=== PATIENT | male | born 1990 | race Asian ===

== ENCOUNTER 2017-12-29 01:38 | Emergency (ER) | payer OTHER ==
[~2017-12-29] VITALS: Ht 185.4 cm; Wt 104.5 kg
[~2017-12-29 01:38] MED LIST: PROTONIX 40MG T40 MG PO; ZITHROMAX 250M250 MG PO; ZITHROMAX Z PA250 MG PO; ZOFRAN ODT4 MG PO
[2017-12-29 01:43] VITALS: BP 128/62; TEMP 97.2
[2017-12-29 02:09] LABS: BASO % 0.3 % (0.0-2.0); GRAN % 62.9 % (42.2-75.2); HEMOGLOBIN 14.5 g/dl (13.5-18.0); LYMPH # 2.9 (1.2-3.4); LYMPH % 29.7 % (20.0-51.0); MEAN CELL VOLUME 86 fl (80.0-100.0); MEAN CORPUSCULAR HEMOGLOBIN 30 pg (27.0-31.0); MEAN CORPUSCULAR HGB CONC 35 g/dl (33.0-37.0); MEAN PLATELET VOLUME 9.6 fl (7.4-10.4); MONO # 0.7 (0.1-0.6); MONO % 6.9 % (1.7-9.3); PLATELET COUNT 292 K/mm3 (130-400); RED BLOOD COUNT 4.87 M/mm3 (4.20-5.60); REDCELL DISTRIBUTION WIDTH-CV 12.6 % (11.5-14.5)
[2017-12-29 02:21] LABS: ALBUMIN 3.8 gm/dL (3.5-5.0); BILIRUBIN,TOTAL 0.2 mg/dL (0.0-1.0); C-REACTIVE PROTEIN 0.9 mg/dL (0.0-0.9); CALCIUM 8.9 mg/dL (8.4-10.2); CREATININE, serum 0.89 mg/dL (0.66-1.25); POTASSIUM 4.1 mmol/L (3.4-5.0); TOTAL PROTEIN 7.4 gm/dL (6.4-8.2)
[2017-12-29 03:36] VITALS: PULSE 65
== END 2017-12-29 03:35 | disposition home or self-care (01) ==
LOC: COL.ER 01:38
PROVIDERS: Nurse Practitioner
DX: K85.90 Acute pancreatitis without necrosis or infection, unspecified (principal); F17.210 Nicotine dependence, cigarettes, uncomplicated
CPT/HCPCS: J2405; J7030

== ENCOUNTER 2018-09-11 05:01 | Emergency (ER) | payer OTHER ==
[~2018-09-11] VITALS: Ht 183 cm; Wt 110.5 kg
[2018-09-11 05:13] VITALS: TEMP 97.9
[2018-09-11 07:19] VITALS: BP 128/60; PULSE 80
== END 2018-09-11 07:20 | disposition home or self-care (01) ==
LOC: COL.ER 05:01
DX: R51 Headache (principal); R11.10 Vomiting, unspecified; F17.290 Nicotine dependence, other tobacco product, uncomplicated

== ENCOUNTER 2018-10-07 04:20 | Emergency (ER) | payer OTHER ==
[~2018-10-07] VITALS: Ht 180 cm; Wt 110.5 kg
[2018-10-07 04:32] VITALS: TEMP 97.9
[2018-10-07 06:08] LABS: BASO % 0.3 % (0.0-2.0); GRAN # 8.3 (1.4-6.5); GRAN % 73.9 % (42.2-75.2); HEMATOCRIT 43.7 % (42.0-52.0); HEMOGLOBIN 14.9 g/dl (13.5-18.0); LYMPH # 2.2 (1.2-3.4); LYMPH % 19.9 % (20.0-51.0); MEAN CELL VOLUME 87 fl (80.0-100.0); MEAN CORPUSCULAR HEMOGLOBIN 30 pg (27.0-31.0); MEAN CORPUSCULAR HGB CONC 34 g/dl (33.0-37.0); MEAN PLATELET VOLUME 9.5 fl (7.4-10.4); MONO # 0.6 (0.1-0.6); MONO % 5.5 % (1.7-9.3); PLATELET COUNT 319 K/mm3 (130-400); RED BLOOD COUNT 5.05 M/mm3 (4.20-5.60); REDCELL DISTRIBUTION WIDTH-CV 12.4 % (11.5-14.5)
[2018-10-07 06:18] LABS: ALBUMIN 4.2 gm/dL (3.5-5.0); BILIRUBIN,TOTAL 0.4 mg/dL (0.0-1.0); CALCIUM 9.6 mg/dL (8.4-10.2); CREATININE, serum 0.78 mg/dL (0.66-1.25); POTASSIUM 4.1 mmol/L (3.4-5.0); TOTAL PROTEIN 7.8 gm/dL (6.4-8.2)
[2018-10-07] MEDS ORDERED: ZOFRAN 4MG T4 MG/TAB PO (07:02)
[2018-10-07 07:10] VITALS: BP 127/87; PULSE 81
== END 2018-10-07 07:07 | disposition home or self-care (01) ==
LOC: COL.ER 04:20
PROVIDERS: Emergency Medicine
DX: R10.13 Epigastric pain (principal); R11.2 Nausea with vomiting, unspecified

== ENCOUNTER 2018-10-23 13:24 | Emergency (ER) | payer OTHER ==
[~2018-10-23] VITALS: Ht 182.9 cm; Wt 110.5 kg
[~2018-10-23 13:24] MED LIST changes: +ZOFRAN 4MG T4 MG/TAB PO
[2018-10-23 13:29] VITALS: BP 156/88; TEMP 98
[2018-10-23] MEDS ORDERED: ADVIL200 MG PO (14:26)
[2018-10-23 14:57] VITALS: PULSE 75
== END 2018-10-23 14:59 | disposition home or self-care (01) ==
LOC: COL.ER 13:24
DX: J06.9 Acute upper respiratory infection, unspecified (principal)

== ENCOUNTER 2018-12-03 20:07 | Emergency (ER) | payer OTHER ==
[~2018-12-03] VITALS: Ht 180 cm; Wt 110.5 kg
[~2018-12-03 20:07] MED LIST changes: +ADVIL200 MG PO
[2018-12-03 20:12] VITALS: BP 134/78; PULSE 85; TEMP 97
[2018-12-03] MEDS ORDERED: AMOXICILLIN875 MG PO (20:34)
== END 2018-12-03 20:54 | disposition home or self-care (01) ==
LOC: COL.ER 20:07
DX: K08.89 Other specified disorders of teeth and supporting structures (principal)

== ENCOUNTER 2019-01-01 23:38 | Emergency (ER) | payer OTHER ==
[~2019-01-01] VITALS: Ht 185 cm; Wt 110.5 kg
[~2019-01-01 23:38] MED LIST changes: +AMOXICILLIN875 MG PO
[2019-01-01 23:50] VITALS: TEMP 98.5
[2019-01-02] MEDS ORDERED: PROTONIX 40MG T40 MG PO (01:53)
[2019-01-02 02:54] VITALS: BP 118/84; PULSE 70
== END 2019-01-02 02:54 | disposition home or self-care (01) ==
LOC: COL.ER 23:38
DX: R10.13 Epigastric pain (principal)

== ENCOUNTER 2019-08-21 01:41 | Emergency (ER) | payer OTHER ==
[~2019-08-21] VITALS: Ht 180 cm; Wt 97.7 kg
[2019-08-21 01:53] VITALS: BP 135/85; TEMP 98
[2019-08-21 02:33] LABS: COLLECTION METHOD CLEAN CATCH
[2019-08-21 02:43] LABS: MUCOUS Present /lpf; PH 6 (5-8); SQUAMOUS EPITHELIAL None Seen /hpf; URINE APPEARANCE Clear; URINE BACTERIA None Seen /hpf; URINE BILIRUBIN Negative (NEGATIVE); URINE BLOOD Negative (NEGATIVE); URINE COLOR Yellow; URINE GLUCOSE Negative (NEGATIVE); URINE KETONE Negative (NEGATIVE); URINE LEUKOCYTE ESTERASE Negative (NEGATIVE); URINE NITRATE Negative (NEGATIVE); URINE PROTEIN(semi-quant) Negative (NEGATIVE); URINE RBC 0-2 /hpf; URINE UROBILINOGEN Negative (NEGATIVE)
[2019-08-21 03:20] VITALS: PULSE 83
== END 2019-08-21 03:23 | disposition home or self-care (01) ==
LOC: COL.ER 01:41
PROVIDERS: Nurse Practitioner
DX: K64.4 Residual hemorrhoidal skin tags (principal); F17.290 Nicotine dependence, other tobacco product, uncomplicated

== ENCOUNTER 2021-01-04 21:33 | Emergency (ER) | payer OTHER ==
[~2021-01-04] VITALS: Ht 180.3 cm; Wt 100.0 kg
[2021-01-04 21:38] VITALS: TEMP 98
[2021-01-04 22:06] LABS: BASO % 0.2 % (0.0-2.0); GRAN # 7.3 (1.4-6.5); GRAN % 82.2 % (42.2-75.2); HEMATOCRIT 46.5 % (42.0-52.0); HEMOGLOBIN 15.5 g/dl (13.5-18.0); LYMPH # 1.1 (1.2-3.4); LYMPH % 11.8 % (20.0-51.0); MEAN CELL VOLUME 86 fl (80.0-100.0); MEAN CORPUSCULAR HEMOGLOBIN 29 pg (27.0-31.0); MEAN CORPUSCULAR HGB CONC 33 g/dl (33.0-37.0); MEAN PLATELET VOLUME 9.7 fl (7.4-10.4); MONO # 0.5 (0.1-0.6); MONO % 5.6 % (1.7-9.3); PLATELET COUNT 347 K/mm3 (130-400); RED BLOOD COUNT 5.44 M/mm3 (4.20-5.60); REDCELL DISTRIBUTION WIDTH-CV 13.2 % (11.5-14.5)
[2021-01-04 22:10] LABS: COLLECTION METHOD CLEAN CATCH
[2021-01-04 22:16] LABS: MUCOUS Present /lpf; PH 5 (5-8); SQUAMOUS EPITHELIAL None Seen /hpf; URINE APPEARANCE Hazy; URINE BACTERIA None Seen /hpf; URINE BILIRUBIN Negative (NEGATIVE); URINE BLOOD Negative (NEGATIVE); URINE COLOR Yellow; URINE GLUCOSE Negative (NEGATIVE); URINE KETONE Negative (NEGATIVE); URINE LEUKOCYTE ESTERASE Negative (NEGATIVE); URINE NITRATE Negative (NEGATIVE); URINE PROTEIN(semi-quant) 1+ (NEGATIVE); URINE RBC 0-2 /hpf; URINE UROBILINOGEN Negative (NEGATIVE)
[2021-01-04 22:21] LABS: ALBUMIN 4.3 gm/dL (3.5-5.0); BILIRUBIN,TOTAL 0.5 mg/dL (0.0-1.0); C-REACTIVE PROTEIN 1.4 mg/dL (0.0-0.9); CALCIUM 8.8 mg/dL (8.4-10.2); CREATININE, serum 0.83 (0.66-1.25); POTASSIUM 4.1 mmol/L (3.4-5.0); TOTAL PROTEIN 8.4 gm/dL (6.4-8.2)
[2021-01-05 00:37] VITALS: BP 120/78; PULSE 81
== END 2021-01-05 00:37 | disposition home or self-care (01) ==
LOC: COL.ER 21:33
PROVIDERS: Nurse Practitioner Primary Care
DX: K52.9 Noninfective gastroenteritis and colitis, unspecified (principal); F17.290 Nicotine dependence, other tobacco product, uncomplicated
CPT/HCPCS: J2405; J7030; Q9967

== ENCOUNTER 2021-02-03 01:03 | Emergency (ER) | payer OTHER ==
[~2021-02-03] VITALS: Ht 180 cm; Wt 113.6 kg
[2021-02-03 01:54] VITALS: BP 134/97; PULSE 73; TEMP 98.2
== END 2021-02-03 01:54 | disposition home or self-care (01) ==
LOC: COL.ER 01:03
DX: J34.89 Other specified disorders of nose and nasal sinuses (principal); Z20.822 Contact with and (suspected) exposure to COVID-19